=== PATIENT | male | born 1960 | race Caucasian/White ===

== ENCOUNTER 2016-09-13 08:34 | Emergency (ER) | payer BC ==
[~2016-09-13] VITALS: Ht 180.3 cm; Wt 89.0 kg
[2016-09-13 08:49] VITALS: BP 136/96
[2016-09-13 11:17] LABS: ADD MIUA? NO; BILIRUBIN NEGATIVE; BLOOD NEGATIVE; COLOR YELLOW ((YELLOW)); GLUCOSE (STRIP) NEGATIVE; KETONES NEGATIVE; LEUKOCYTES NEGATIVE; NITRITE NEGATIVE; PROTEIN (STRIP) NEGATIVE; SPECIFIC GRAVITY 1.013 (1.000-1.030); UCUL ADDED? NO; UROBILINOGEN 0.2 MG/DL (0.2-1.0)
[2016-09-13] MEDS ORDERED: NAPROSYN500 MG PO (11:50)
[2016-09-13] MEDS ORDERED: MEDROL DOSEPAK4 MG PO (11:50)
== END 2016-09-13 12:37 | disposition home or self-care (01) ==
LOC: EME 08:34
PROVIDERS: Emergency Medicine
DX: M54.5 Low back pain (principal); F17.200 Nicotine dependence, unspecified, uncomplicated
CPT/HCPCS: 72131; 74176; 81003; 87086; 99281; 99285; J1100